=== PATIENT | male | born 1970 | race Caucasian/White ===

== ENCOUNTER 2017-02-01 08:23 | Emergency (ER) | payer OTHER ==
[2017-02-01 08:42] VITALS: BP 104/71
--- NOTE | 2017-02-01 09:22 | XRay Report ---
LEFT KNEE, 3 views: History: Left knee injury. The bony architecture is intact without evidence of fracture or dislocation. No joint pathology is appreciated. Small joint effusion is suspected on the lateral image. IMPRESSION: Small joint effusion. No osseous abnormality is detected.
[2017-02-01] MEDS ORDERED: TYLENOL PO ONE (10:20)
[2017-02-01] MEDS ORDERED: MOTRIN PO ONE (10:20)
--- NOTE | 2017-02-01 10:28 | Emergency Department Report ---
ED General Adult HPI - General Chief complaint: Extremity Injury, Lower Stated complaint: L KNEE DISLOCATION/ SPORTS INJURY Time Seen by Provider: 02/01/17 10:02 Source: patient Mode of arrival: Wheelchair Limitations: No Limitations - History of Present Illness Initial comments: Patient is a 46-year-old malewith past medical history who presents with left knee pain. Patient was playing soccer and he states that one of his colleagues walked him and hit his knee. He states that he heard a pop and he had some pain. He states the pain is a 5 out 10 is located in the lateral portion of his knee doesn't radiate it's an achy type of pain bending position makes the pain better strength and up and same makes it worse. Patient was able to bear weight on his knee. Patient has not had any surgery on his knee before and denies hurting anything else on his body. - Related Data Home Medications Medication Instructions Recorded Confirmed Last Taken No Known Home Medications [No 02/01/17 02/01/17 Unknown Reported Home Medications] Allergies Allergy/AdvReac Type Severity Reaction Status Date / Time No Known Allergies Allergy Unverified 02/01/17 08:38 ED Review of Systems ROS: Stated complaint: L KNEE DISLOCATION/ SPORTS INJURY Other details as noted in HPI Constitutional: denies: chills, fever Eyes: denies: eye pain, eye discharge, vision change ENT: denies: ear pain, throat pain Respiratory: denies: cough, shortness of breath, wheezing Cardiovascular: denies: chest pain, palpitations Endocrine: no symptoms reported Gastrointestinal: denies: abdominal pain, nausea, diarrhea Genitourinary: denies: urgency, dysuria Musculoskeletal: joint swelling, other (knee pain ). denies: back pain, arthralgia Skin: denies: rash, lesions Neurological: denies: headache, weakness, paresthesias Psychiatric: denies: anxiety, depression Hematological/Lymphatic: denies: easy bleeding, easy bruising ED Past Medical Hx - Past Medical History Previous Medical History?: No - Surgical History Past Surgical History?: No - Social History Smoking Status: Never Smoker Substance Use Type: Alcohol - Medications Home Medications: Home Medications Medication Instructions Recorded Confirmed Last Taken Type No Known Home Medications [No 02/01/17 02/01/17 Unknown History Reported Home Medications] ED Physical Exam - General Limitations: No Limitations General appearance: alert, in no apparent distress - Head Head exam: Present: atraumatic, normocephalic - Eye Eye exam: Present: normal appearance - ENT ENT exam: Present: mucous membranes moist - Neck Neck exam: Present: normal inspection - Respiratory Respiratory exam: Present: normal lung sounds bilaterally. Absent: respiratory distress - Cardiovascular Cardiovascular Exam: Present: regular rate, normal rhythm. Absent: systolic murmur, diastolic murmur, rubs, gallop - GI/Abdominal GI/Abdominal exam: Present: soft, normal bowel sounds - Rectal Rectal exam: Present: deferred - Extremities Exam Extremities exam: Present: normal inspection - Expanded Lower Extremity Exam Left Knee exam: Present: full ROM, full knee extension. Absent: abrasion, laceration , deformity, crepidus, dislocation Lower Leg exam: Present: normal inspection Ankle exam: Present: normal inspection Neuro vascular tendon exam: Present: no vascular compromise. Absent: pulse deficit, abnormal cap refill, motor deficit, sensory deficit, tendon deficit, extremity cold to touch Gait: Positive: observed and limited by pain - Back Exam Back exam: Present: normal inspection - Neurological Exam Neurological exam: Present: alert, oriented X3 - Psychiatric Psychiatric exam: Present: normal affect, normal mood - Skin Skin exam: Present: warm, dry, intact, normal color. Absent: rash ED Course Vital Signs 02/01/17 02/01/17 08:38 10:35 Temperature 98.7 F Pulse Rate 68 Respiratory 20 18 Rate Blood Pressure 104/71 O2 Sat by Pulse 97 Oximetry ED Medical Decision Making - Radiology Data Radiology results: report reviewed, image reviewed Knee x-ray shows: No acute osseous injury mild joint swelling. - Medical Decision Making Chief medical diagnosis: Meniscus tear Differential medical diagnosis: Patellar dislocation, anterior cruciate ligament tear I will get x-ray and we'll give patient oral analgesic medications X-ray shows no fracture patient able to bear weight discussed with patient about following up with an orthopedic surgeon in case she he has any tears. Gave referral for Dr. Le. Gait patient return precautions come back to the ED he agrees to plan for discharge and plan for referral. He has no other questions. Additional verbal discharge instructions were given. Critical care attestation.: If time is entered above; I have spent that time in minutes in the direct care of this critically ill patient, excluding procedure time. ED Disposition Clinical Impression: Left knee pain Qualifiers: Chronicity: acute Qualified Code(s): M25.562 - Pain in left knee Disposition: TO HOME OR SELFCARE Is pt being admited?: No Does the pt Need Aspirin: No Condition: Stable Instructions: Knee Effusion (ED), Knee Exercises (GEN) Referrals: NEFTALI LE MD [Staff Physician] - 3-5 Days Time of Disposition: 10:22
== END 2017-02-01 10:36 | disposition home or self-care (01) ==
LOC: ED 08:23
DX: M25.562 Pain in left knee (principal)
CPT/HCPCS: 99283

== ENCOUNTER 2017-05-10 05:41 | Day surgery (SDC) | payer OTHER ==
[~2017-05-10 05:41] MED LIST: ANCEF/STERILE WATER 2 GM/20 ML IV NR
[2017-05-10] MEDS ORDERED: PEPCID PO NR (06:00)
[2017-05-10] MEDS ORDERED: NACL 0.9% 1000 ML 1,000 ML IV SCH (06:00)
[2017-05-10] MEDS ORDERED: VERSED IV NR (06:00)
--- NOTE | 2017-05-10 06:24 | Anesthesia Day of Surgery ---
Anesthesia Day of Surgery - Day of Surgery Patient Examined: Yes Patient H&P Reviewed: Yes Patient is NPO: Yes
--- NOTE | 2017-05-10 06:24 | Anesthesia Consultation ---
Anesthesia Consult and Med Hx Date of service: 05/10/17 - Airway Anesthetic Teeth Evaluation: Good ROM Head & Neck: Adequate Mental/Hyoid Distance: Adequate Mallampati Class: Class II Intubation Access Assessment: Probably Good - Pulmonary Exam CTA: Yes - Cardiac Exam Cardiac Exam: RRR - Pre-Operative Health Status ASA Pre-Surgery Classification: ASA1 Proposed Anesthetic Plan: General - Pulmonary Hx Smoking: No Hx Sleep Apnea: No (JORDYN PRE SCREEN LOW RISK) - Cardiovascular System Hx Hypertension: No - Endocrine Hx Non-Insulin Dependent Diabetes: No - Other Systems Hx Cancer: No
[2017-05-10] MEDS ORDERED: NACL BACTERIOSTATIC INFILTRATI ONE (06:39)
[2017-05-10] MEDS ORDERED: DECADRON ONE ×2 (06:47→09:42)
[2017-05-10] MEDS ORDERED: MARCAINE 0.5% 30 ML INFILTRATI ONE (06:47)
[2017-05-10] MEDS ORDERED: CLONIDINE 1,000 MCG/10 ML VIAL EP ONE (06:48)
[2017-05-10] MEDS ORDERED: XYLOCAINE MPF 2% ONE (07:20)
[2017-05-10] MEDS ORDERED: DILAUDID ONE (07:20)
[2017-05-10] MEDS ORDERED: DIPRIVAN 10 MG/ML IV ONE (07:20)
[2017-05-10] MEDS ORDERED: ADRENALIN IV ONE ×2 (07:24→08:04)
[2017-05-10] MEDS ORDERED: MARCAINE 0.25% INFILTRATI ONE (07:40)
[2017-05-10] MEDS ORDERED: XYLOCAINE 1% 20 mL INFILTRATI ONE (07:40)
--- NOTE | 2017-05-10 09:39 | Short Stay Summary ---
Short Stay Documentation Date of service: 05/10/17 - History H&P: obtained from office - Allergies and Medications Current Medications: Allergies No Known Allergies Allergy (Verified 04/22/17 16:09) Home Medications Medication Instructions Recorded Confirmed Last Taken Type No Known Home Medications [No 02/01/17 05/10/17 Unknown History Reported Home Medications] Active Medications Cefazolin Sodium (Ancef/Sterile Water 2 Gm/20 Ml) 2 gm IV PREOP NR Stop: 05/10/17 23:59 Famotidine (Pepcid) 20 mg PO PREOP NR Stop: 05/10/17 23:59 Last Admin: 05/10/17 06:50 Dose: 20 mg Sodium Chloride (Nacl 0.9% 1000 Ml) 1,000 mls @ 75 mls/hr IV DIRECT DAVID Last Admin: 05/10/17 06:50 Dose: 75 mls/hr Midazolam HCl (Versed) 2 mg IV PREOP NR Stop: 05/10/17 23:59 Last Admin: 05/10/17 07:10 Dose: 2 mg - Brief post op/procedure progress note Date of procedure: 05/10/17 Pre-op diagnosis: persistent left knee pain and instability acl tear, meniscus tear Post-op diagnosis: other (left knee complete ACL rupture, lateral meniscus tear) Procedure: left knee arthroscopy partial lateral meniscectomy, anterior cruciate ligament reconstruction with bone patellar tendon bone allograft Anesthesia: GETA Findings: as above Surgeon: DARRION MORALES Patternmaker Bench: ANAMIKA CRAWFORD III Estimated blood loss: minimal Pathology: none - Hospital course Hospital course: no perioperative complications - Disposition Condition at discharge: Good Disposition: DC-01 TO HOME OR SELFCARE Short Stay Discharge Plan Follow up with: PRIMARY CARE, [Primary Care Provider] - 7 Days
[2017-05-10] MEDS ORDERED: NACL 0.9% 1000 ML 1,000 ML ONE (09:42)
[2017-05-10] MEDS ORDERED: ZOFRAN ONE (09:42)
[2017-05-10] MEDS ORDERED: PERCOCET 5/325 ONE (10:21)
[2017-05-10] MEDS ORDERED: PERCOCET 5/325 PO PRN (10:30)
[2017-05-10 11:05] VITALS: BP 131/92
--- NOTE | 2017-05-10 11:08 | Post Anesthesia Evaluation ---
- Post Anesthesia Evaluation Patient Participated: Yes Airway Patent: Yes Stable Respiratory Function: Yes Nausea/Vomiting: No Temp > 96.8F: Yes Pain Manageable: Yes Adequeate Hydration: Yes Anesthesia Complications: No
--- NOTE | 2017-05-10 12:42 | Operative Report ---
PREOPERATIVE DIAGNOSES: Persistent left knee pain and instability anterior cruciate ligament tear, lateral meniscus tear. POSTOPERATIVE DIAGNOSES: Persistent left knee pain and instability, complete rupture of the anterior cruciate ligament, small radial tear at the posterior horn of the lateral meniscus, grade 2 articular cartilage wear of the medial femoral condyle as well as central aspect of the patella. OPERATIVE PROCEDURE: Left knee arthroscopy, partial lateral meniscectomy, anterior cruciate ligament reconstruction with bone patellar tendon bone allograft. SURGEON: Eladio Kwong MD [employer] DEPARTMENT SUPERVISOR: Prakash Conroy MD PREOPERATIVE ANTIBIOTICS: Ancef 2 grams IV within 1 hour of skin incision. DVT PROPHYLAXIS: Open toe, thigh-high compression stockings and SCD pumps to the nonoperative right lower extremity. SCD pumps to the right lower extremity. OPERATIVE INSTRUMENTATION: Two Rigid fix bioabsorbable pins for femoral bone plug fixation, one 10 x 23 Obdulia screw for tibial bone plug fixation. OPERATIVE COMPLICATIONS: None. PREOPERATIVE HISTORY AND PHYSICAL: This is a 47-year-old male who has had persistent left knee pain and instability status post an injury in 01/2017. The pain, instability limits his day-to-day activities and has failed to improve despite extensive nonoperative treatment. The patient could not have an MRI scan and a CT scan was performed, which was positive for a large complex tear located in the posterior horn and medial meniscus, articular cartilage wear of the medial patellofemoral compartment as well as an anterior cruciate ligament tear. The patient's CT scan findings and diagnosis were discussed at length to make sure the patient understood his diagnoses and all of his questions were answered. We discussed treatment alternatives, surgical and nonsurgical including risks and benefits of both. After a long lengthy discussion, the patient opted to proceed with operative interventions. This will entail left knee arthroscopy, partial medial meniscectomy, possible anterior cruciate ligament reconstruction, and surgery is indicated the risks which were discussed include, but not inclusive of infection, blood loss, nerve damage, loss of range of motion, persistent pain, persistent instability, recurrent rupture of the ACL graft, persistent limp. Again, the patient understood, all of his questions were answered, and he wished to proceed with operative intervention. DESCRIPTION OF PROCEDURE: The patient was seen in the preoperative holding room area at which point informed consent was reviewed and appropriate left lower extremity was identified and then marked. Anesthesia was then performed with a femoral nerve block to left lower extremity after confirmation of adequate analgesia, the left lower extremity. The patient was then brought back to the operating room and placed supine on a standard operating room table at which point general anesthesia was administered and an LMA tube was inserted. After confirmation of adequate general anesthesia and checking appropriate placement of the appropriate LMA tube, we then made sure that all bony prominences were well padded that there were no wrinkles in the compression stockings on the right lower extremity and SCD pumps were applied to the right lower extremity. The arms were secured into position at the patient's side with the aid of the arm boards. The head was secured in nice neutral position as well. The left lower extremity was then examined under anesthesia. The patient was seen to have full range of motion. There was a positive Keesha, positive anterior drawer, positive pivot shift, negative posterior drawer. No varus or valgus instability at 0 as well as 30 degrees of flexion and no recurvatum or excessive external rotation compared to the opposite extremity. Following examination under anesthesia, the left lower extremity was then prepped and draped in the usual sterile fashion. After prepping and draping, a time-out was called and appropriate left lower extremity was identified which again had been marked in the preoperative area. I began the procedure by first making a standard anterolateral portal with a #15 blade. Once the portal was established, a cannula and blunt trocar were inserted into the intra-articular aspect of the knee joint. This went without difficulty or damage to articular cartilage. The arthroscopic camera was immediately placed in the medial compartment establishing anteromedial portal by first inserting an 18-gauge spinal needle under direct arthroscopic visualization and once confirmed to be in appropriate position, a #15 blade was then used to establish anteromedial portal. Once it was established, a blunt trocar was inserted to widen the portal site followed by an arthroscopic probe. We began a diagnostic arthroscopy in the medial compartment with the patient to have a grade 2/3 articular cartilage loss over the entire weightbearing portion of the medial femoral condyle. There were no tears in the anterior or posterior horn of the medial meniscus which was seen to be stable when probed and inspection of the notch showed the completed rupture of the anterior cruciate ligament. The posterior cruciate ligament was seen to be intact and stable when probed. Inspection of the lateral compartment showed to be no tears in the anterior horn of the lateral meniscus. The popliteus tendon was seen to be intact and stable when probed. There was a small radial tear located in the posterior horn of the lateral meniscus involving the white-white zone. There was normal articular cartilage of the lateral femoral condyle and lateral tibial plateau. We performed a partial lateral meniscectomy in the standard fashion using series of basket punches and 4.0 meniscal shaver down to a nice, smooth, stable healthy remaining border all in all removing the white-white zone. Final inspection of the medial and lateral gutters showed these to be free and clear of all loose bodies. Inspection of patellofemoral joint showed to be grade 1 articular cartilage loss in the central aspect of the patella. There were no loose bodies in the suprapatellar pouch. The arthroscopic camera was then placed in the posterior aspect of the knee, showed there were no loose bodies present, and the arthroscopic camera was then removed from the posterior aspect of the knee. Arthroscopic pump was turned off in anticipation of preparation of the graft and the graft was fashioned, which was a bone patellar tendon bone allograft to fit in a 10 mm tunnel. The bone plugs were fashioned at 25 each, both femoral and tibial. Once the bone plugs have been appropriately fashioned with the aid of my accounting manager assistant controller, 1 drill hole was placed in the femoral bone plug and 2 drill holes were placed in the tibial bone plug and these drill holes were threaded with #2 Orthocord using a total of 3. Upon the arthroscopic pump was turned back on, the remnant of the ACL was debrided using a series of basket punches with 4.0 meniscal shaver and was completed. The stenotic V-shaped notch was converted to U-shaped notch by first using Arthrocare ablation wand to remove the soft tissues using a 4.0 hooded barrel bur taking careful attention not to lateralize the medial wall. Once this was completed, the tibial tunnel guide was then inserted and then using this, a third incision was made on the anteromedial aspect of the proximal tibia and a guidepin was then drilled up into the proximal tibia and up into the intra-articular aspect of the knee. Once confirmed the appropriate positioning, a #10 reamer was then used to ream the tibial tunnel. Once the tibial tunnel was reamed, the 7-mm over the top guide was placed in appropriate position and then a long Beath pin was then drilled up into the distal femur and then out the anterolateral aspect of the distal thigh. Following this, a #10 reamer was then used to ream the femoral tunnel to a depth of approximately 25-30 mm. Once this was completed, the arthroscopic shaver was removed to remove any excessive bone. Once this was completed, the RIGIDfix guide was then tapped up in the intra-articular aspect of the knee and then up into the femoral tunnel. Once the femoral tunnel, a fourth incision was made in the lateral aspect of distal thigh and preparation of insertion of cannulated guides. These were then drilled into place and then left. The cannulated guides were left in place. The intra-articular aspect of the guide was then removed. Once removed, the graft was taken off the back table, which had been left in tension and then the femoral bone plug sutures were then threaded through the eyelet of the Beath pin and the graft was then pulled up into the intra-articular aspect of the knee. Once appropriately positioned, accounting manager assistant controller held both the tibial bone plug sutures with the graft in place, I then using the cannulated guides that had been left on the lateral aspect of distal thigh, drilled across the femoral bone plug and then inserted two bioabsorbable RIGIDfix pins for femoral bone plug fixation. Once fixed in place, the knee was cycled through full range of motion and we saw full extension and full flexion. A Nitinol pin was then inserted into the tibial tunnel and up into the intra-articular aspect of the knee. Once in place, the arthroscopic camera was then removed from the intra-articular aspect of the knee and then placed in the tibial tunnel. Once in the tibial tunnel, we saw now the sutures were wrapped around the Nitinol pin and the #9 starter tap was then used and then following this, we inserted a 10 x 23 bioabsorbable Ro screw for tibial bone plug fixation. Once appropriately fixated, the knee was again cycled through full range of motion. The patient was then noted to have a negative Keesha and stretched. The arthroscopic camera was then placed back in the intra-articular aspect of the knee. The graft was probed and seen to be stable. The extraneous fluid was suctioned from the knee using arthroscopic cannula. Following this, all the arthroscopic instrumentation was removed. The 2 portal sites were closed with 3-0 nylon. The tibial tunnel was closed with 2-0 Vicryl and 3-0 nylon. The lateral incision was closed with 2-0 Vicryl and a #3 nylon as well. Following this, Adaptic, 4 x 4, ABD, open-toe thigh compression stocking was applied with a knee immobilizer. The patient was awakened from general anesthesia without complications to the recovery room in stable condition. Standard postoperative orders were written. Thank you very much. JOB# [id number] VS/NTS
== END 2017-05-10 05:42 | disposition home or self-care (01) ==
LOC: OR 05:41
PROVIDERS: ATTEND Orthopaedic Surgery
DX: S83.512A Sprain of anterior cruciate ligament of left knee, initial encounter (principal); S83.282A Other tear of lateral meniscus, current injury, left knee, initial encounter; X58.XXXA Exposure to other specified factors, initial encounter; Y93.89 Activity, other specified; Y92.89 Other specified places as the place of occurrence of the external cause; Y99.8 Other external cause status; Z79.899 Other long term (current) drug therapy
CPT/HCPCS: 29881; 29888; 64450; 97161; C1713; C1762; G8978; G8979; G8980; J0171; J0690; J0735; J1100; J1170; J2250; J2405; J2704; J7030